=== PATIENT | male | born 1940 | race Caucasian/White ===

== ENCOUNTER 2017-06-23 09:33 | Day surgery (SDC) | payer OTHER ==
[~2017-06-23] VITALS: Ht 170.2 cm; Wt 98.9 kg
[~2017-06-23 09:33] MED LIST: (None)50 MG; AMLO5 PO; ASPI81CH PO; ATOR20 PO; CHOL10002; FINA5 PO; FISH1000; LISHYD1012 PO; LISI5 PO; METAMUCIL0.4 GM PO; MITIGARE0.6 MG PO; OMEG1CAP30 PO; TAMS.4ER PO; VITAMIN B122500 MCG PO; Vitamin C1000 M1
== END 2017-06-23 22:57 | disposition home or self-care (01) ==
LOC: ORSCMMR 09:33
PROVIDERS: Internal Medicine Gastroenterology
PROC: 0DBK8ZX Excision of Ascending Colon, Via Natural or Artificial Opening Endoscopic, Diagnostic (ICD-10-PCS; principal; 2017-06-23 11:00)
PROC: 0DBH8ZX Excision of Cecum, Via Natural or Artificial Opening Endoscopic, Diagnostic (ICD-10-PCS; principal; 2017-06-23 11:00)
PROC: 0DBL8ZX Excision of Transverse Colon, Via Natural or Artificial Opening Endoscopic, Diagnostic (ICD-10-PCS; principal; 2017-06-23 11:00)
DX: Z12.11 Encounter for screening for malignant neoplasm of colon (principal); D12.0 Benign neoplasm of cecum; D12.2 Benign neoplasm of ascending colon; D12.3 Benign neoplasm of transverse colon; K44.9 Diaphragmatic hernia without obstruction or gangrene; K57.30 Diverticulosis of large intestine without perforation or abscess without bleeding; K64.8 Other hemorrhoids; Z86.010 Personal history of colon polyps; I25.10 Atherosclerotic heart disease of native coronary artery without angina pectoris; I10 Essential (primary) hypertension; Z79.82 Long term (current) use of aspirin; Z79.899 Other long term (current) drug therapy
CPT/HCPCS: 88305; J7120

== ENCOUNTER 2024-02-23 07:41 | Day surgery (SDC) | payer OTHER ==
[2024-02-23] VITALS (8 sets, daily range): BP systolic 139–168; BP diastolic 68–84
[~2024-02-23] VITALS: Ht 172.7 cm; Wt 84.8 kg
[~2024-02-23 07:41] MED LIST changes: +ALLO100 PO; +EZET10 PO; +NITR.4SL SL; +OMEGA-3 FISH O1 EAC6 PO; +VITAMIN B121000 MCG PO; -VITAMIN B122500 MCG PO; +VITAMIN D5000 UNIT PO; +ZINC GLUCONATE PO
[2024-02-23] MEDS ORDERED: CeFAZolin Sodium 2,000 MG VIAL ONE (08:29)
[2024-02-23] MEDS ORDERED: EpiNEPhrine 1 MG/1 ML 1ML Vial ONE (08:29)
[2024-02-23] MEDS ORDERED: NS 100 ML IV ONE (08:30)
[2024-02-23] MEDS ORDERED: DiphenhydrAMINE HCl 50 MG/ML 1ML Vial ONE (08:32)
[2024-02-23] MEDS ORDERED: NS 500 ML IV ONE (08:32)
[2024-02-23] MEDS ORDERED: NS 1,000 ML IV ONE (08:44)
[2024-02-23] MEDS ORDERED: Heparin Sodium 1000 Units/ML 10ML MDV ONE (08:44)
--- NOTE | 2024-02-23 08:47 | NUR ---
DR. GARVEY AT BEDSIDE. DISCUSSION REGARDING PT ALLERGY TO MULTIPLE ANTIBIOTICS PER DR. GARVEY SMALL DOSE, 1CC, OF ANCEF TO BE GIVEN SLOWLY, WITH MONITORING FOLLOWED BY ANOTHER DOSE OF 5CC TO EVAL IF PT HAS A REACTION.
[2024-02-23] MEDS ORDERED: CeFAZolin Sodium 1000 mg Vial ONE (08:59)
[2024-02-23] MEDS ORDERED: Midazolam HCl 1MG / ML 2ML Vial ONE (09:16)
[2024-02-23] MEDS ORDERED: FentaNYL Citrate 50 MCG/ML 2 ML Injection ONE (09:16)
--- NOTE | 2024-02-23 12:58 | NUR ---
PT BACK TO RECOVERY ROOM AT 1115 S/P PACEMAKER PLACEMENT. DR GARVEY UPDATED FAMILY AND PT. PACEMAKER REP ALSO AT BEDSIDE GIVING EDUCATION REGARDING WELDING. PT AWAKE AND ALERT, DENIES COMPLAINTS. DRSG TO LEFT CHEST WALL C/D/I. ICE PACK TO INCISION AREA. VSS. PT DAVIDA JUICE, DECLINES MEAL. 2 VIEW XRAY ORDERED FOR 1300.
--- NOTE | 2024-02-23 13:46 | NUR ---
PT AND VERBALIZED UNDERSTANDING OF WRITTEN AND VERBAL D/C INST. IV REMOVED. PT TAKEN OUT OF THE HRT CENTER VIA W/C.
== END 2024-02-23 14:08 | disposition home or self-care (01) ==
LOC: MHTC 07:41
DX: R00.1 Bradycardia, unspecified (principal); R53.83 Other fatigue; R06.09 Other forms of dyspnea; I45.89 Other specified conduction disorders; I25.10 Atherosclerotic heart disease of native coronary artery without angina pectoris; I12.9 Hypertensive chronic kidney disease with stage 1 through stage 4 chronic kidney disease, or unspecified chronic kidney disease; N18.32 Chronic kidney disease, stage 3b; M10.9 Gout, unspecified; Z79.899 Other long term (current) drug therapy; Z88.0 Allergy status to penicillin; Z88.2 Allergy status to sulfonamides; Z88.5 Allergy status to narcotic agent; Z88.8 Allergy status to other drugs, medicaments and biological substances; Z95.1 Presence of aortocoronary bypass graft
CPT/HCPCS: 33208; 71046; 99152; 99153; C1785; C1894; C1898; J0171; J0690; J1200; J1644; J2250; J3010; J7040; Q9967

== ENCOUNTER 2025-02-20 05:52 | Day surgery (SDC) | payer OTHER ==
[2025-02-20] VITALS (14 sets, daily range): BP systolic 92–123; BP diastolic 54–69
[2025-02-20] MEDS ORDERED: NS 1,000 ML IV ONE (06:39)
--- NOTE | 2025-02-20 07:15 | NUR ---
ASSUMED CARE FROM ANESTHESIA. PT AWAKE AND VERBALIZING WELL. PT ATRIAL PACED POST CARDIOVERSION.
[2025-02-20] MEDS ORDERED: ELIQUIS5 M2 PO (07:25)
--- NOTE | 2025-02-20 08:10 | NUR ---
PT AND FAMILY VERBALIZED UNDERSTANDING OF WRITTEN AND VERBAL D/C INST. IV REMOVED. PT TAKEN OUT OF THE HRT CENTER VIA W/C.
[2025-02-20] MEDS ORDERED: Propofol 10mg/ml 20 ml Vial (Procedural) IV ONE (08:39)
== END 2025-02-20 23:00 | disposition home or self-care (01) ==
LOC: MHTC 05:52
DX: I48.92 Unspecified atrial flutter (principal); I25.10 Atherosclerotic heart disease of native coronary artery without angina pectoris; I12.9 Hypertensive chronic kidney disease with stage 1 through stage 4 chronic kidney disease, or unspecified chronic kidney disease; N18.31 Chronic kidney disease, stage 3a; E78.00 Pure hypercholesterolemia, unspecified; E66.3 Overweight; Z68.28 Body mass index [BMI] 28.0-28.9, adult; Z95.1 Presence of aortocoronary bypass graft; Z95.0 Presence of cardiac pacemaker; Z79.82 Long term (current) use of aspirin; Z79.899 Other long term (current) drug therapy; Z88.0 Allergy status to penicillin; Z88.1 Allergy status to other antibiotic agents; Z88.2 Allergy status to sulfonamides; Z88.5 Allergy status to narcotic agent; Z88.8 Allergy status to other drugs, medicaments and biological substances
CPT/HCPCS: 92960; 93005; 93010; J2704; J7030